=== PATIENT | male | born 1975 | race Caucasian/White ===

== ENCOUNTER 2023-02-23 13:12 | Emergency (ER) | payer MEDICAID ==
[~2023-02-23] VITALS: Ht 165.1 cm; Wt 68.9 kg
[2023-02-23 13:21] VITALS: PULSE 85; RESP 20; TEMP 97.9; O2SAT 98
[2023-02-23] MEDS ORDERED: LIDOCAINE 1% 10 MG/ML, 50 ML MDV INJ ONE (13:30)
--- NOTE | 2023-02-23 13:30 | NUR ---
ER at bedside examining patient.
--- NOTE | 2023-02-23 13:35 | NUR ---
Patient given written and verbal discharge instructions and verbalizes understanding. ER MD discussed with patient the results and treatment provided. Patient in stable condition. ID arm band removed. Rx of cephalexin given. Patient educated on pain management and to follow up with PMD. Opportunity for questions provided and answered. Medication side effect fact sheet provided.
--- NOTE | 2023-02-23 13:40 | NUR ---
ER at bedside examining patient.
[2023-02-23] MEDS ORDERED: NAPR-690 PO (13:55)
[2023-02-23] MEDS ORDERED: CEPH-548 PO (13:55)
[2023-02-23 13:56] VITALS: BP_SYST 168; PULSE 88; RESP 20; TEMP 97.9; O2SAT 98
== END 2023-02-23 13:35 | disposition home or self-care (01) ==
LOC: SED 13:12
DX: L02.413 Cutaneous abscess of right upper limb (principal); E11.9 Type 2 diabetes mellitus without complications; I10 Essential (primary) hypertension; Z88.5 Allergy status to narcotic agent; Z79.899 Other long term (current) drug therapy
CPT/HCPCS: 99283; 10060; J2001

== ENCOUNTER 2023-02-25 10:06 | Emergency (ER) | payer MEDICAID ==
[~2023-02-25] VITALS: Ht 182.9 cm; Wt 99.8 kg
[~2023-02-25 10:06] MED LIST: CEPH-548 PO; NAPR-690 PO
[2023-02-25 10:15] VITALS: BP_SYST 136; PULSE 85; RESP 22; TEMP 98.3; O2SAT 98
[2023-02-25] MEDS ORDERED: BACITRACIN 1 GM OINT TP ONE (10:45)
[2023-02-25 11:03] VITALS: BP_SYST 136; PULSE 85; RESP 22; TEMP 98.3; O2SAT 98
== END 2023-02-25 10:59 | disposition home or self-care (01) ==
LOC: SED 10:06
DX: L02.413 Cutaneous abscess of right upper limb (principal); E11.9 Type 2 diabetes mellitus without complications; I10 Essential (primary) hypertension; Z88.5 Allergy status to narcotic agent; Z79.899 Other long term (current) drug therapy
CPT/HCPCS: 99282